=== PATIENT | male | born 1955 | race African-American/Black ===

== ENCOUNTER 2023-10-26 09:39 | Emergency (ER) | payer MEDICARE, OTHER ==
[~2023-10-26] VITALS: Ht 182.9 cm; Wt 88.0 kg
[2023-10-26 10:03] VITALS: TEMP 98.2; O2SAT 99
[2023-10-26 12:52] LABS: BASOPHILS % 0.7 % (0.0-2.0); EOSINOPHILS % 0.6 % (0.0-5.0); HEMOGLOBIN. 14.9 g/dL (14.0-18.0); LYMPHOCYTES % 38.7 % (20.0-50.0); MEAN CORPUSCULAR HEMOGLOBIN 31.7 pg (28.0-32.0); MEAN CORPUSCULAR HGB CONC 34.7 g/dL (31.0-37.0); MEAN CORPUSCULAR VOLUME 91.4 fL (80.0-94.0); MEAN PLATELET VOLUME 7.9 fl (7.4-10.4); MONOCYTES % 9.1 % (2.0-8.0); NEUTROPHILS % 50.9 % (40.0-76.0); PLATELET 243 x1000/uL (130-400)
[2023-10-26 13:01] LABS: ALANINE AMINOTRANSFERASE 25 IU/L (10-49); ALBUMIN 4.9 g/dL (3.2-4.8); ASPARTATE AMINOTRANSFERASE 25 IU/L (<34); BILIRUBIN TOTAL 0.9 mg/dL (0.1-1.0); CARBON DIOXIDE 26 mEq/L (21-32); CHLORIDE 102 mEq/L (98-107); CREATININE 0.8 mg/dL (0.6-1.3); GLUCOSE 275 mg/dL (70-105); POTASSIUM 4.4 mEq/L (3.5-5.1); PROTEIN TOTAL 7.7 g/dL (6.0-8.3); SODIUM 135 mEq/L (136-145); UREA NITROGEN BLOOD 6 mg/dL (9-23)
[2023-10-26 13:02] LABS: PROTHROMBIN TIME 10.7 sec (9.6-11.0)
[2023-10-26] MEDS ORDERED: T3 PO (14:09)
[2023-10-26 14:15] VITALS: BP 145/77; PULSE 76; RESP 16
[2023-10-26] MEDS ORDERED: HYDROCODONE/ACETAMINOPHEN 5/325MG TABLET PO ONE (14:15)
== END 2023-10-26 14:55 | disposition home or self-care (01) ==
LOC: ER 09:39
DX: R10.11 Right upper quadrant pain (principal); R10.31 Right lower quadrant pain; E11.9 Type 2 diabetes mellitus without complications; Z85.9 Personal history of malignant neoplasm, unspecified
CPT/HCPCS: 36415; 74176; 80053; 85025; 99284

== ENCOUNTER 2024-03-02 11:16 | Emergency (ER) | payer MEDICARE, OTHER ==
[~2024-03-02] VITALS: Ht 182.9 cm; Wt 82.3 kg
[~2024-03-02 11:16] MED LIST: T3 PO
[2024-03-02 11:24] VITALS: BP 121/70; PULSE 76; RESP 16; TEMP 98.3; O2SAT 100
[2024-03-02 12:45] LABS: BASOPHILS % 0.8 % (0.0-2.0); EOSINOPHILS % 0.6 % (0.0-5.0); HEMATOCRIT. 41.8 % (42.0-52.0); HEMOGLOBIN. 14.3 g/dL (14.0-18.0); LYMPHOCYTES % 35.4 % (20.0-50.0); MEAN CORPUSCULAR HGB CONC 34.2 g/dL (31.0-37.0); MEAN CORPUSCULAR VOLUME 90.8 fL (80.0-94.0); MEAN PLATELET VOLUME 8.2 fl (7.4-10.4); NEUTROPHILS % 54.2 % (40.0-76.0); PLATELET 253 x1000/uL (130-400); RED BLOOD CELL COUNT 4.61 mill/uL (4.7-6.1); RED CELL DISTRIBUTION WIDTH 13.4 % (11.6-14.6); WHITE BLOOD COUNT 7.1 x1000/uL (4.5-11.0)
[2024-03-02 13:07] LABS: PROTHROMBIN TIME 11.1 sec (9.6-11.0)
[2024-03-02 13:12] LABS: ALANINE AMINOTRANSFERASE 22 IU/L (10-49); ALBUMIN 4.9 g/dL (3.2-4.8); ASPARTATE AMINOTRANSFERASE 31 IU/L (<34); BILIRUBIN TOTAL 0.6 mg/dL (0.1-1.0); CALCIUM 9.5 mg/dL (8.7-10.4); CARBON DIOXIDE 25 mEq/L (21-32); CHLORIDE 106 mEq/L (98-107); CREATININE 0.8 mg/dL (0.6-1.3); GLUCOSE 76 mg/dL (70-105); POTASSIUM 3.8 mEq/L (3.5-5.1); PROTEIN TOTAL 7.8 g/dL (6.0-8.3); SODIUM 139 mEq/L (136-145); UREA NITROGEN BLOOD 7 mg/dL (9-23)
[2024-03-02 14:18] LABS: TROPONIN I HIGH SENSITIVITY < 4 ng/L (3.0-53)
== END 2024-03-02 19:49 | disposition home or self-care (01) ==
LOC: ER 11:16
DX: R07.89 Other chest pain (principal); E11.9 Type 2 diabetes mellitus without complications; Z85.9 Personal history of malignant neoplasm, unspecified
CPT/HCPCS: 36415; 71045; 80053; 83880; 84484; 85025; 85379; 93005; 99285

== ENCOUNTER 2025-09-24 14:48 | Inpatient (IN) | payer MEDICARE, MEDICAID ==
[2025-09-24] VITALS (12 sets, daily range): BP systolic 128–159; BP diastolic 85–107; PULSE 67–76; RESP 13–22; TEMP 36.9–36.974; O2SAT 98–100
[~2025-09-24] VITALS: Ht 182.9 cm; Wt 69.0 kg
[2025-09-24] MEDS ORDERED: IODIXANOL 320 MG/ML 150ML BOTTLE IV ONE (15:03)
[2025-09-24] MEDS ORDERED: HEPARIN 1000 UNITS/ML 10ML ONE (15:03)
[2025-09-24] MEDS ORDERED: LIDOCAINE HCL 1% 20ML VIAL ONE (15:03)
[2025-09-24] MEDS: HEPARIN 5000 UNITS/ML VIAL IV ONE (15:10)
[2025-09-24] MEDS ORDERED: MIDAZOLAM HCL 2 MG/2 ML VIAL ONE (15:10)
[2025-09-24] MEDS ORDERED: FENTANYL CITRATE/PF 50MCG/ML 2ML VIAL ONE (15:10)
[2025-09-24] MEDS ORDERED: ONDANSETRON HCL 4MG/2ML INJ ONE (15:14)
[2025-09-24] MEDS ORDERED: EPINEPHRINE 0.1MG/ML (1:10,000) 10ML SYR ONE (15:14)
[2025-09-24] MEDS ORDERED: ATROPINE SULFATE 1MG/10ML SYR ONE (15:15)
[2025-09-24] MEDS ORDERED: ONDANSETRON HCL 4MG/2ML INJ IV PRN (15:45)
[2025-09-24] MEDS ORDERED: ACETAMINOPHEN 325MG TABLET PO PRN ×2 (15:45→16:30)
[2025-09-24] MEDS ORDERED: HYDRALAZINE 20MG/ML VIAL IV PRN (15:45)
[2025-09-24] MEDS ORDERED: DOCUSATE SODIUM 100MG CAPSULE PO PRN (15:45)
[2025-09-24] MEDS ORDERED: DEXTROSE 50% WATER 50ML SYRINGE IV PRN ×2 (15:45→18:00)
[2025-09-24] MEDS ORDERED: IPRATROPIUM/ALBUTEROL 0.5-3(2.5)MG/3ML NEB HHN PRN (15:45)
[2025-09-24] MEDS ORDERED: MAGNESIUM/ALUMINUM HYDROXIDE/SIMETHICONE 30ML UDC PO PRN (15:45)
[2025-09-24] MEDS ORDERED: IODIXANOL 320MG/ML 100 ML BOTTLE IV ONE (15:52)
[2025-09-24 15:58] LABS: BASOPHILS % 1.2 % (0.0-2.0); EOSINOPHILS % 0.3 % (0.0-5.0); HEMATOCRIT. 44.3 % (42.0-52.0); HEMOGLOBIN. 14.9 g/dL (14.0-18.0); LYMPHOCYTES % 26.7 % (20.0-50.0); MEAN PLATELET VOLUME 8.7 fl (7.4-10.4); MONOCYTES % 8.9 % (2.0-8.0); NEUTROPHILS % 62.9 % (40.0-76.0); PLATELET 287 x1000/uL (130-400); RED BLOOD CELL COUNT 4.64 mill/uL (4.7-6.1); RED CELL DISTRIBUTION WIDTH 14.3 % (11.6-14.6)
[2025-09-24] MEDS ORDERED: NITROGLYCERIN 0.4MG TABLET SL SL PRN (16:00)
[2025-09-24] MEDS ORDERED: PANTOPRAZOLE SODIUM 40 MG/VIAL IV SCH (16:00)
[2025-09-24 16:12] LABS: INR 0.9
[2025-09-24] MEDS ORDERED: CLOPIDOGREL 75MG TABLET ONE (16:14)
[2025-09-24 16:20] LABS: CREATININE 0.8 mg/dL (0.6-1.3)
[2025-09-24 16:21] LABS: UREA NITROGEN BLOOD 9 mg/dL (9-23)
[2025-09-24 16:22] LABS: ASPARTATE AMINOTRANSFERASE 29 IU/L (<34); TROPONIN I HIGH SENSITIVITY 18 ng/L (3.0-53)
[2025-09-24 16:23] LABS: BILIRUBIN DIRECT 0.2 mg/dL (<=3.0); BILIRUBIN TOTAL 0.7 mg/dL (0.1-1.0); PROTEIN TOTAL 8.3 g/dL (6.0-8.3)
[2025-09-24] MEDS ORDERED: ATROPINE SULFATE 1MG/10ML SYR IV PRN (16:30)
[2025-09-24] MEDS ORDERED: HYDRALAZINE 20MG/ML VIAL ONE (16:48)
[2025-09-24] MEDS ORDERED: FAMOTIDINE 20MG/2ML VIAL IV SCH (17:00)
[2025-09-24] MEDS: LOSARTAN 50 MG TABLET PO SCH (20:18)
[2025-09-24] MEDS: METOPROLOL TARTRATE 25MG TABLET PO SCH (20:23)
[2025-09-24] MEDS ORDERED: ATORVASTATIN CALCIUM 40MG TABLET PO SCH (21:00)
[2025-09-24] MEDS: BLOOD SUGAR DIAGNOSTIC STRIP TEST SCH (22:30)
[2025-09-24] MEDS: FAMOTIDINE 20MG/2ML VIAL IV SCH (22:45)
[2025-09-24] MEDS: ATORVASTATIN CALCIUM 40MG TABLET PO SCH (22:45)
[2025-09-24] MEDS: INSULIN GLARGINE 100 UNITS/ML SUBCUT SCH (22:46)
[2025-09-24] MEDS: INSULIN LISPRO 100 UNITS/ML SUBCUT SCH (22:46)
[2025-09-25] VITALS (59 sets, daily range): BP systolic 99–166; BP diastolic 50–112; PULSE 63–83; RESP 7–30; TEMP 36.6–36.9; O2SAT 96–100
[2025-09-25 02:41] LABS: TROPONIN I HIGH SENSITIVITY 512 ng/L (3.0-53)
[2025-09-25 06:23] LABS: BASOPHILS % 0.6 % (0.0-2.0); EOSINOPHILS % 0.4 % (0.0-5.0); HEMATOCRIT. 41.8 % (42.0-52.0); HEMOGLOBIN. 14.1 g/dL (14.0-18.0); LYMPHOCYTES % 23.1 % (20.0-50.0); MEAN PLATELET VOLUME 8.4 fl (7.4-10.4); MONOCYTES % 13.1 % (2.0-8.0); NEUTROPHILS % 62.8 % (40.0-76.0); PLATELET 266 x1000/uL (130-400); RED BLOOD CELL COUNT 4.38 mill/uL (4.7-6.1); RED CELL DISTRIBUTION WIDTH 14.7 % (11.6-14.6)
[2025-09-25 06:36] LABS: CREATININE 0.8 mg/dL (0.6-1.3); TRIGLYCERIDE 132 mg/dL (0-150); UREA NITROGEN BLOOD 8 mg/dL (9-23)
[2025-09-25 06:37] LABS: LDL CHOLESTEROL 119 mg/dL (5-100)
[2025-09-25 06:39] LABS: T4 FREE 0.75 ng/dL (0.89-1.76)
[2025-09-25 07:45] LABS: TROPONIN I HIGH SENSITIVITY 707 ng/L (3.0-53)
[2025-09-25] MEDS: LEVOTHYROXINE SODIUM 50MCG TABLET PO SCH (08:24)
[2025-09-25] MEDS: CLOPIDOGREL 75MG TABLET PO SCH (08:25)
[2025-09-25] MEDS: ASPIRIN 81MG TABLET PO SCH (08:25)
[2025-09-25] MEDS ORDERED: ASPIRIN 81MG TABLET PO SCH (09:00)
[2025-09-25] MEDS: ENOXAPARIN 40MG/0.4ML SYR SUBCUT SCH (12:27)
[2025-09-25 17:44] LABS: TROPONIN I HIGH SENSITIVITY 845 ng/L (3.0-53)
[2025-09-26] VITALS: BP 111/60; PULSE 66; RESP 14; TEMP 36.8; O2SAT 97
[2025-09-26 04:00] VITALS: BP 101/56; PULSE 62; RESP 14; TEMP 36.8; O2SAT 96
[2025-09-26 08:00] VITALS: BP 141/76; PULSE 65; RESP 20; TEMP 36.3; O2SAT 98
[2025-09-26 09:16] LABS: BASOPHILS % 0.6 % (0.0-2.0); EOSINOPHILS % 0.6 % (0.0-5.0); HEMATOCRIT. 44.2 % (42.0-52.0); HEMOGLOBIN. 14.6 g/dL (14.0-18.0); LYMPHOCYTES % 26.2 % (20.0-50.0); MEAN PLATELET VOLUME 8.2 fl (7.4-10.4); MONOCYTES % 11.7 % (2.0-8.0); NEUTROPHILS % 60.9 % (40.0-76.0); PLATELET 260 x1000/uL (130-400); RED BLOOD CELL COUNT 4.63 mill/uL (4.7-6.1); RED CELL DISTRIBUTION WIDTH 14.5 % (11.6-14.6)
[2025-09-26 09:27] LABS: CREATININE 0.8 mg/dL (0.6-1.3); UREA NITROGEN BLOOD 11 mg/dL (9-23)
[2025-09-26 09:41] LABS: TROPONIN I HIGH SENSITIVITY 661 ng/L (3.0-53)
[2025-09-26] MEDS ORDERED: METO25TA6 PO (10:15)
[2025-09-26] MEDS ORDERED: LEVO50TA8 PO (10:15)
[2025-09-26] MEDS ORDERED: CLOP-31 PO (10:15)
[2025-09-26] MEDS ORDERED: ASPI-1160 PO (10:15)
[2025-09-26] MEDS ORDERED: LIP40 PO ×2 (10:15→12:23)
[2025-09-26] MEDS ORDERED: LANTUSUD SUBCUT (10:15)
[2025-09-26] MEDS ORDERED: LOSA50TA41 PO (10:15)
[2025-09-26 11:44] VITALS: BP 123/82; PULSE 62; RESP 17; TEMP 36.5; O2SAT 98
[2025-09-26 12:00] VITALS: BP 123/82; PULSE 62; RESP 17; TEMP 97.7
== END 2025-09-26 13:15 | disposition home health service (06) | DRG 321 ==
LOC: ER 14:48 → EDBEDREQ 15:45 → CVICU 20:56 → 3WST 09-25 14:26
PROVIDERS: ADMIT Hospitalist; ATTEND Hospitalist
PROC: 027237Z Dilation of Coronary Artery, Three Arteries with Four or More Drug-eluting Intraluminal Devices, Percutaneous Approach (ICD-10-PCS; principal; 2025-09-24)
PROC: 4A023N7 Measurement of Cardiac Sampling and Pressure, Left Heart, Percutaneous Approach (ICD-10-PCS; 2025-09-24)
PROC: B211YZZ Fluoroscopy of Multiple Coronary Arteries using Other Contrast (ICD-10-PCS; 2025-09-24)
DX: I21.19 ST elevation (STEMI) myocardial infarction involving other coronary artery of inferior wall (principal); I10 Essential (primary) hypertension; E03.9 Hypothyroidism, unspecified; E11.9 Type 2 diabetes mellitus without complications; I25.10 Atherosclerotic heart disease of native coronary artery without angina pectoris; E78.00 Pure hypercholesterolemia, unspecified; Z79.4 Long term (current) use of insulin; Z79.02 Long term (current) use of antithrombotics/antiplatelets; Z79.82 Long term (current) use of aspirin; Z79.899 Other long term (current) drug therapy; Z85.05 Personal history of malignant neoplasm of liver; Z95.5 Presence of coronary angioplasty implant and graft
CPT/HCPCS: 36415; 80048; 80061; 80076; 82550; 82962; 83036; 83735; 83880; 84439; 84443; 84484; 85025; 85347; 86850; 86900; 92941; 93005; 93306; 93454; 93970; 99291; A4606; C1725; C1769; C1874; C1887; C1893; J0360; J0461; J1308; J1644; J1650; J1815; J2003; J2250; J2405; J3010; J3490; Q9967